=== PATIENT | male | born 1945 | race Caucasian/White ===

== ENCOUNTER → 2018-07-04 09:39 | Outpatient (CLI) | payer MEDICARE, OTHER, SELFPAY ==
[2018-07-04 10:44] LABS: Alanine Aminotransferase 33 IU/L (21-72); Albumin 4.2 g/dL (3.5-5.0); Albumin Globulin Ratio 1.7 (1.0-2.8); Alkaline Phosphatase 58 U/L (38-126); Aspartate Aminotransferase 29 IU/L (17-59); Bilirubin Total 0.6 mg/dL (0.2-1.3); Blood Urea Nitrogen 21 mg/dL (9-20); Calcium 9.2 mg/dL (8.4-10.2); Carbon Dioxide 29 mmol/L (22-32); Chloride 108 mmol/L (98-107); Cholesterol 136 mg/dL (140-199); Estimated Glomerular Filt Rate > 60.0 mL/min (>60); Globulin 2.5 g/dL (1.7-4.1); Glucose 96 mg/dL (80-110); HDL Cholesterol 50 mg/dL (40-60); HEMOLYSIS < 15 (0-50); LDL Cholesterol Calculated 73 mg/dL (<100); Potassium 5.2 mmol/L (3.4-5.1); Sodium 145 mmol/L (137-145); Total Protein 6.7 g/dL (6.3-8.2); Triglycerides 66 mg/dL (35-150)
[2018-07-04 11:42] LABS: Hep C Virus Ab w/Reflex Quant NEGATIVE s/c (NEGATIVE)
== END ==
PROVIDERS: Family Provider Internal Medicine; PCP Internal Medicine; Visit Provider Internal Medicine
DX: E78.2 Mixed hyperlipidemia (principal); K21.9 Gastro-esophageal reflux disease without esophagitis
CPT/HCPCS: 36415; 80053; 80061; 86803

== ENCOUNTER → 2018-10-03 19:05 | Outpatient (CLI) | payer MEDICARE, OTHER, SELFPAY ==
--- NOTE | 2018-10-03 19:07 | DI.MRI.S_ITS ---
PROCEDURE: MR CERVICAL SPINE WO CON INDICATIONS: C6 RADICULOPATHY TECHNIQUE: Noncontrast sagittal T1 spin echo and T2 fast spin echo, sagittal STIR, foraminal oblique sagittal T2 fast spin echo, and axial gradient echo or T2 fast spin echo through the cervical spine. COMPARISON: None. FINDINGS: Image quality: Excellent. Alignment and Curvature: There is loss of normal cervical lordosis. There is grade 1 retrolisthesis at C4-C5, C5-C6 and C6-C7. Bone Marrow: Marrow demonstrates normal overall signal. Spinal Cord: Visualized spinal cord has normal caliber. There is hyperintense signal in the dorsal cord at the level of C4-C5. No cerebellar tonsillar herniation. Paraspinous Soft Tissues: No paravertebral masses. Prevertebral soft tissues are normal in thickness. C2-C3: Preserved disc height. Mild disc desiccation. There is mild posterior disc bulge and posterior central annular fissure. The central canal is patent. No foraminal stenosis. C3-C4: Gdoq-ow-jwrxjzbz loss of disc height and disc desiccation. There is diffuse posterior disc bulge and small posterior central annular fissure. Uncovertebral hypertrophy. The central canal is moderately narrowed. Moderate bilateral foraminal stenosis. C4-C5: Moderate loss of disc height and disc desiccation. There is diffuse posterior disc bulge and disc osteophyte complex. Uncovertebral hypertrophy. Mild bilateral facet arthropathy. The central canal is ncyvwfmc-uc-wlicagpb narrowed. Severe bilateral foraminal stenosis. C5-C6: Moderate loss of disc height and disc desiccation. There is diffuse posterior disc bulge and disc osteophyte complex. Uncovertebral hypertrophy. Moderate bilateral facet arthropathy. The central canal is severely narrowed. Severe bilateral foraminal stenosis. C6-C7: Vuxyahfl-fg-vmaccl loss of disc height and disc desiccation. There is diffuse posterior disc bulge and disc osteophyte complex. Uncovertebral hypertrophy. Mild bilateral facet arthropathy. The central canal is severely narrowed. Severe bilateral foraminal stenosis. C7-T1: Mild loss of disc height and moderate disc desiccation. There is diffuse posterior disc bulge and disc osteophyte complex. Mild bilateral facet arthropathy. The central canal is moderately narrowed. Severe left and moderate right foraminal stenosis. IMPRESSION: 1. Multilevel degenerative disc disease and facet arthropathy as described. 2. Multilevel central canal stenoses, severe at C5-C6 and C6-C7, jlvsjoxr-ns-hwgcoy at C4-C5, and moderate central canal stenosis at C3-C4 and C7-T1. 3. Multilevel foraminal stenoses as described, severe at C4-C5 bilaterally, C5-C6 bilaterally, C6 and C7 bilaterally and C7-T1 on the left. 4. There is hyperintense signal in the dorsal aspect of the spinal cord at the level of C4-C5, suspicious for myelopathy. Dictated by: Latrell Wolfe M.D. on 10/06/2018 at 14:06 Approved by: Latrell Wolfe M.D. on 10/06/2018 at 14:20
== END ==
PROVIDERS: Family Provider Internal Medicine; PCP Internal Medicine; Visit Provider Orthopaedic Surgery
DX: M50.11 Cervical disc disorder with radiculopathy, high cervical region (principal); M47.22 Other spondylosis with radiculopathy, cervical region; M48.02 Spinal stenosis, cervical region
CPT/HCPCS: 72141

== ENCOUNTER → 2019-01-23 10:40 | Outpatient (CLI) | payer MEDICARE, OTHER, SELFPAY ==
[2019-01-23 12:30] LABS: Alanine Aminotransferase 30 IU/L (21-72); Albumin 4.3 g/dL (3.5-5.0); Albumin Globulin Ratio 1.8 (1.0-2.8); Alkaline Phosphatase 58 U/L (38-126); Aspartate Aminotransferase 27 IU/L (17-59); Bilirubin Total 0.6 mg/dL (0.2-1.3); Blood Urea Nitrogen 20 mg/dL (9-20); Calcium 9.3 mg/dL (8.4-10.2); Carbon Dioxide 26 mmol/L (22-32); Chloride 105 mmol/L (98-107); Cholesterol 131 mg/dL (140-199); Estimated Glomerular Filt Rate > 60.0 mL/min (>60); Globulin 2.4 g/dL (1.7-4.1); Glucose 95 mg/dL (80-110); HDL Cholesterol 45 mg/dL (40-60); HEMOLYSIS < 15 (0-50); LDL Cholesterol Calculated 71 mg/dL (<100); Potassium 4.9 mmol/L (3.4-5.1); Sodium 140 mmol/L (137-145); Total Protein 6.7 g/dL (6.3-8.2); Triglycerides 77 mg/dL (35-150)
[2019-01-23 12:56] LABS: Prostate Specific Antigen 2.46 ng/mL (0.10-4.00)
== END ==
PROVIDERS: PCP Internal Medicine; Visit Provider Internal Medicine
DX: E78.2 Mixed hyperlipidemia (principal); R03.0 Elevated blood-pressure reading, without diagnosis of hypertension; Z12.5 Encounter for screening for malignant neoplasm of prostate
CPT/HCPCS: 36415; 80053; 80061; 84153

== ENCOUNTER → 2020-03-01 12:13 | Outpatient (CLI) | payer MEDICARE, OTHER, SELFPAY ==
--- NOTE | 2020-03-01 | DI.RAD.S_ITS ---
PROCEDURE: XR CHEST 2V INDICATIONS: MALIGNANT NEOPLASM TECHNIQUE: 2 views of the chest were acquired. COMPARISON: [facility], RG, XR CXR 1 VIEW, 07/23/2005, 7:07. [facility], CR, CHEST 1 VIEW, 10/19/2007, 6:34. FINDINGS: Surgical changes and devices: None. Lungs and pleura: Lungs are clear. No pleural effusions or pneumothorax. Mediastinum: Mediastinal contours are normal. Heart size is normal. Bones and chest wall: No suspicious bony abnormalities. Soft tissues appear unremarkable. Scoliosis. IMPRESSION: No acute cardiopulmonary disease. Dictated by: Latrell Wolfe M.D. on 03/01/2020 at 13:43 Approved by: Latrell Wolfe M.D. on 03/01/2020 at 13:44
== END ==
PROVIDERS: PCP Internal Medicine; Referring Provider Nurse Practitioner; Visit Provider Nurse Practitioner
DX: C49.9 Malignant neoplasm of connective and soft tissue, unspecified (principal)
CPT/HCPCS: 71046

== ENCOUNTER → 2020-07-07 09:11 | Outpatient (CLI) | payer MEDICARE, OTHER, SELFPAY ==
--- NOTE | 2020-07-07 | DI.MRI.S_ITS ---
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 TECHNIQUE: Noncontrast coronal T1 spin echo and STIR, sagittal T1 spin echo with fat saturation and STIR, axial T1 spin echo and T2 fast spin echo with fat saturation. After the administration of contrast, axial/sagittal/coronal T1 spin echo with fat saturation centered through the left chest wall. COMPARISON: [facility], CT, CT CHEST WO CON, 07/07/2020, 9:16. FINDINGS: Image quality: Diagnostic. Bones: The visualized bone marrow demonstrates normal overall signal. No bone contusions or fractures. No suspicious intraosseous enhancement. Soft tissues: There are postsurgical changes in the posterior left chest wall including a cutaneous defect overlying the trapezius medially. There is a small subjacent loculated fluid collection deep to these surgical scar, measuring approximately 4.1 x 0.9 by 3.8 cm likely representing a postsurgical seroma. No associated internal enhancement identified following contrast administration. Laterally in the posterior chest wall there is a cutaneous marker in the area of clinical concern. No associated discrete subjacent mass or suspicious enhancement demonstrated in this region. Elsewhere within the posterior left chest wall there are small foci of magnetic susceptibility artifact along surgical stock scars consistent with postsurgical changes. The scanned muscles demonstrate normal overall bulk and internal signal. No pleural effusions within the visualized lungs. Bilateral renal cysts are seen within the partially visualized kidneys. IMPRESSION: 1. Postsurgical changes demonstrated in the left posterior chest wall including a probable seroma. 2. No definite evidence of recurrent disease. Dictated by: Gregorio Portillo M.D. on 07/07/2020 at 13:24 Approved by: Gregorio Portillo M.D. on 07/07/2020 at 13:35
--- NOTE | 2020-07-07 | DI.CT.S_ITS ---
PROCEDURE: CT CHEST WO CON INDICATIONS: Malignant neoplasm of connective and soft tissue, unspecifie TECHNIQUE: Noncontrast 5 mm thick sections acquired from the pulmonary apices to the posterior costophrenic angles. 1 mm lung window, 5 mm thick coronal and sagittal and 7 mm axial MIP reformats were then acquired. For radiation dose reduction, the following was used: automated exposure control, adjustment of mA and/or kV according to patient size. COMPARISON: [facility], CR, XR CHEST 2V, 03/01/2020, 12:15. FINDINGS: Image quality: Excellent. Right middle lobe and lingular scarring/atelectasis. No acute consolidation. No pleural effusions or pneumothorax. 3 mm nodule seen in the left upper lobe. Mediastinum: Heart size is normal. No pericardial effusion. No mediastinal adenopathy by size criteria. Thoracic aorta and central pulmonary arteries are normal in size. Esophagus is normal in caliber. No hiatal hernia. Bones and chest wall: No suspicious bony lesions. No vertebral body compression fractures. No axillary or supraclavicular adenopathy by size criteria. Thyroid gland negative . Partially visualized presumed simple appearing renal cysts bilaterally. These are technically indeterminate findings. IMPRESSION: 3 mm nodule involving the left upper lobe, technically indeterminate. Recommend continued surveillance to exclude early metastatic/malignant possibilities. Right middle lobe and lingular scarring/atelectasis. No acute consolidation Dictated by: Malcolm Ladd M.D. on 07/07/2020 at 10:31 Approved by: Malcolm Ladd M.D. on 07/07/2020 at 10:43
== END ==
PROVIDERS: PCP Internal Medicine; Referring Provider Nurse Practitioner; Visit Provider Nurse Practitioner
DX: Z08 Encounter for follow-up examination after completed treatment for malignant neoplasm (principal); Z85.831 Personal history of malignant neoplasm of soft tissue; R91.1 Solitary pulmonary nodule
CPT/HCPCS: 71250; 71552; A9579

== ENCOUNTER → 2020-07-27 15:57 | Outpatient (CLI) | payer MEDICARE, OTHER, SELFPAY ==
--- NOTE | 2020-07-27 16:00 | DI.MRI.S_ITS ---
PROCEDURE: MR CERVICAL SPINE WO CON INDICATIONS: Cervicalgia TECHNIQUE: Noncontrast sagittal T1 spin echo and T2 fast spin echo, sagittal STIR, foraminal oblique sagittal T2 fast spin echo, and axial gradient echo or T2 fast spin echo through the cervical spine. COMPARISON: [facility], MR, MR CERVICAL SPINE WO CON, 10/03/2018, 19:27. FINDINGS: Image quality: Excellent. Alignment and Curvature: Straightening of the normal lordotic curvature. Trace anterolisthesis of C2 on C3. Grade 1 retrolisthesis of C4 on C5 and C5 on C6 Bone Marrow: No fracture. Multilevel degenerative endplate sclerosis and spurring. Diffuse facet arthropathy. Spinal Cord: Visualized spinal cord has normal size and signal. No cerebellar tonsillar herniation. Paraspinous Soft Tissues: No paravertebral masses. Prevertebral soft tissues are normal in thickness. C2-C3: No canal stenosis. No right foraminal narrowing. Moderate left foraminal stenosis which is grossly unchanged C3-C4: Minimal canal narrowing. Moderate bilateral foraminal stenosis with nerve root compression. No interval change C4-C5: Mild canal narrowing which is unchanged. Moderate right foraminal stenosis with nerve root compression, no interval change. Severe left foraminal stenosis with nerve root compression, grossly unchanged C5-C6: Mild canal narrowing. Moderate right foraminal stenosis and severe left foraminal narrowing, with nerve root compression on both sides C6-C7: Mild canal narrowing. Ccuw-bt-nnujdbgl left and moderate right foraminal stenosis, with nerve root compression on both sides although unchanged appearance C7-T1: Minimal canal narrowing. No foraminal stenosis on the right. Moderate left foraminal narrowing, grossly unchanged IMPRESSION: Overall, grossly unchanged examination as detailed above by spinal level. Dictated by: Malcolm Ladd M.D. on 07/27/2020 at 16:59 Approved by: Malcolm Ladd M.D. on 07/27/2020 at 17:17
== END ==
PROVIDERS: PCP Internal Medicine; Referring Provider Orthopaedic Surgery; Visit Provider Orthopaedic Surgery
DX: M54.2 Cervicalgia (principal); M48.02 Spinal stenosis, cervical region
CPT/HCPCS: 72141

== ENCOUNTER → 2020-09-15 10:56 | Outpatient (CLI) | payer MEDICARE, OTHER, SELFPAY ==
[2020-09-15 12:50] LABS: Add Manual Diff / Slide Review NO; Basophils Absolute Auto 0 /uL (0-100); Basophils Percent Auto 0.6 % (0-2); Eosinophils Absolute Auto 100 /uL (0-450); Eosinophils Percent Auto 1.9 % (2-4); Hematocrit 41.1 % (41-53); Hemoglobin 13.6 g/dL (13.5-17.5); Lymphocytes Absolute Auto 1500 /uL (1100-4500); Lymphocytes Percent Auto 26.7 % (25-40); Mean Corpuscular HGB Conc 33.1 % (30-36); Mean Corpuscular Hemoglobin 31.3 PG (26-34); Mean Corpuscular Volume 94.4 fL (80-100); Monocytes Absolute Auto 600 /uL (0-900); Monocytes Percent Auto 9.7 % (3-14); Neutrophils Absolute Auto 3500 /uL (1500-7000); Neutrophils Percent Auto 61.1 % (50-75); Platelet Count 191 X10^3/uL (150-400); Red Blood Cell Count 4.35 X10^6/uL (4.5-5.9); White Blood Cell Count 5.7 X10^3/uL (4.5-11.0)
[2020-09-15 13:04] LABS: Blood Urea Nitrogen 23 mg/dL (9-20)
== END ==
PROVIDERS: PCP Internal Medicine; Referring Provider Orthopaedic Surgery; Visit Provider Orthopaedic Surgery
DX: Z01.818 Encounter for other preprocedural examination (principal); Z01.812 Encounter for preprocedural laboratory examination; R79.89 Other specified abnormal findings of blood chemistry
CPT/HCPCS: 36415; 84520; 85025; 93005

== ENCOUNTER → 2020-09-28 09:30 | Outpatient (CLI) | payer MEDICARE, OTHER, SELFPAY ==
[2020-09-28 10:56] LABS: COVID19 -Nasal RAPID Negative (Negative)
== END ==
PROVIDERS: PCP Internal Medicine; Visit Provider Physician Assistant
DX: Z11.59 Encounter for screening for other viral diseases (principal)
CPT/HCPCS: 87635

== ENCOUNTER 2020-09-29 09:20 | Day surgery (SDC) | payer MEDICARE, OTHER, SELFPAY ==
[2020-09-16 07:28] VITALS: BMI 22.4
[2020-09-29] VITALS (18 sets, daily range): BP systolic 129–161; BP diastolic 61–88; PULSE 61–76; RESP 8–17; TEMP 35.8–37.1; O2SAT 92–100; BMI 22.6
--- NOTE | 2020-09-29 | DI.RAD.S_ITS ---
PROCEDURE: XR CERVICAL SPINE 2V OR 3V INDICATIONS: C4-C7 DISCECTOMY TECHNIQUE: To view(s) of the cervical spine were acquired. COMPARISON: None. FINDINGS: Bones: Normal alignment established after anterior approach interbody staple cervical fusion devices at C4-C5, C5-C6, and C6-C7. There also are interbody disc prosthesis devices at each of these 3 levels. Soft tissues: No prevertebral soft tissue swelling. IMPRESSION: C4 through C7 anterior discectomy and interbody disc prosthesis placement with interbody fusion devices at the C4-C5, C5-C6, and C6-C7 levels. Dictated by: Anatoliy Bradford M.D. on 09/29/2020 at 12:17 Approved by: Anatoliy Bradford M.D. on 09/29/2020 at 12:21
[2020-09-29] MEDS: LACTATED RINGERS 1,000 ML 42 ML IV (09:54)
--- NOTE | 2020-09-29 10:10 | PM.PREOP ---
Pre-operative Note COVID-19 COVID-19 status: Negative Result date/Date tested (Pos, Neg/Pending): 09/28/20 Interval Note History & Physical reviewed/Exam performed by Physician: Yes Changes to H&P: No
[2020-09-29] MEDS: CEFAZOLIN 2 GM/100 ML FROZ.PIGGY IV ×2 (10:32→17:42)
--- NOTE | 2020-09-29 11:03 | SUR.OPER ---
Supine, head on gel donut. Arms padded with gel pads, tucked at sides, towel roll under shoulders. Safety belt at thigh. Legs uncrossed.
[2020-09-29] MEDS: THROMBIN (RECOMBINANT) 5,000 UNIT VIAL 5000 UNIT TOP (11:14)
[2020-09-29] MEDS: SODIUM CHLORIDE 0.9% 1,000 ML, GENTAMICIN 80 MG IRR (11:15)
[2020-09-29] MEDS: BUPIVACAINE 0.25% (PF) VIAL 30 ML INJ (11:18)
--- NOTE | 2020-09-29 12:04 | P.OP_ITS ---
Operative Date/Time/Diagnoses Date of procedure: 09/29/20 Time of procedure: 12:04 Pre-op diagnosis: Cervical stenosis with myelopathy Post-op diagnosis: same Procedure & Clinicians Procedure: C4-5, C5-6, C6-7 ACDF with cages Iliac crest bone graft aspirate Use of microscope Same procedure as scheduled: Yes Indications: [age] year old male with myelopathy from cervical stenosis. They had failed conservative management and requested operative intervention. Risks and benefits of surgery were discussed and appropriate consents were obtained. Surgeon: Memo Welch Supply Chain Engineer: Elizabeth Carlos Anesthesia Type: General Operative Notes Findings: None Closure Type: primary Specimen(s): none sent Prosthetic devices, grafts, tissues, transplants, or devices: Star ANETTE-C Estimated Blood Loss (mL): 10 Procedure in detail: Patient was brought to the operating room and intubated on the table. A time-out was performed. Preoperative antibiotics were given. The neck was prepped and draped in the standard sterile fashion. Using a skin fold, we made a 3 cm oblique incision on the left side. We used Bovie to go through the platysma and then did a standard anterolateral blunt dissection down to the precervical fascia. Fascia was nicked and elevated up. A marker was placed and x-ray was taken for localization. We then subperiosteally elevated up the longus colli muscles. Self-retaining retractors were placed. [place] Marys pins were placed. We then brought in the microscope. A scalpel used to perform an annulotomy. We then used a combination of pituitaries and curettes and Kerrison to perform a complete anterior diskectomy at C6-7. We used the bur to take down the posterior osteophytes. We took down the PLL and used Kerrison to remove any posterior disc material and osteophytes. At the end we could from the nerve hook cephalad caudally and out the foramen and everything was opened. A small stab incision was made over the left anterior iliac crest. A Jamshidi needle was advanced into the pelvis and 2 mL of bone marrow was aspirated. We then used the trials. We then packed a 15 x 17 x 6 mm ANETTE-C cage with Primagen bone graft and the iliac crest harvest. The cage was placed under fluoroscopic guidance. We then placed our two locking plates completing the ACDF at C6-7. We then moved up to the C5-6 level. We again performed a complete diskectomy. We used the bur to decorticate the endplates and take down the posterior osteophytes. We took down the PLL and removed the remaining disc and osteophytes. We swept everything with the nerve hook and it was open. We then trialed and placed another 15 x 17 x 6 mm cage with bone graft for the ACDF at C5-6. The locking plates were placed. We then moved up to the C4-5 level. We again performed a complete diskectomy. We used the bur to decorticate the endplates and remove the posterior osteophytes. We took down the PLL and removed the remaining disc and osteophyte material. We checked that everything was open with a nerve hook. We then tr ialed and placed another 15 x 17 x 6 mm cage with bone graft for the ACDF at C4- 5. The locking plates were placed. The self-retaining retractors and Saint Marys pins were removed and final x-rays taken. The wound was irrigated. There was no bleeding. The carotid was beating nicely. The platysma was closed. The superficial was closed. The skin was closed. A sterile dressing was placed. They were then extubated and brought to recovery room with no complications. Complications: none Post-operative Condition: stable Disposition: PACU Plan for aftercare: Inpatient. Soft collar for comfort.
[2020-09-29] MEDS: fentaNYL 100 MCG/2 ML INJ IV ×2 (12:35→12:40)
[2020-09-29] MEDS: OXYCODONE/ACETAMINOPHEN 5/325 TABLET 1 TAB PO ×3 (12:42→16:29)
--- NOTE | 2020-09-29 12:55 | SUR.PHASEI ---
Report called to ALPHONSO Bustamante on floor. Plan to take pt up in 15-20 minutes.
--- NOTE | 2020-09-29 13:09 | SUR.PHASEI ---
Pt transferred to floor in stable condition by ALPHONSO De Paz
--- NOTE | 2020-09-29 14:23 | PC.NURSE ---
Assess- Patient to floor around 1315, he has an anterior cervical dressing that is cdi, with soft collar in place. Given 2 percocet down in pacu and is comfortable. IVF infusing, patients skin check done and under physical assessment. Patient also has an illiac crest dressing to his l.hip that is cdi, from harvest site. He has good cms and ppx2. Resting comfortably.
[2020-09-29] MEDS: CELECOXIB 200 MG CAPSULE 400 MG PO (14:38)
[2020-09-29] MEDS: LACTATED RINGERS 1,000 ML 125 ML IV ×2 (14:39→22:52)
[2020-09-29] MEDS: CELECOXIB 200 MG CAPSULE PO (21:31)
[2020-09-29] MEDS: SENNOSIDES 8.6 MG TABLET 17.2 MG PO (21:31)
[2020-09-29] MEDS: BENZOCAINE/MENTHOL 1 LOZ PKT 1 EACH PO (21:31)
[2020-09-29] MEDS: DOCUSATE 100 MG CAPSULE PO (21:31)
[2020-09-29] MEDS: GABAPENTIN 300 MG CAPSULE PO (21:31)
[2020-09-29] MEDS: hydrOXYzine pamoate 25 MG CAPSULE PO (23:29)
--- NOTE | 2020-09-30 01:40 | PC.NURSE ---
2305 Received safe hand-off report. The patient is currently sitting up in bed. He is alert and oriented x4. Denies significant pain. He has LR infusing at 125mL/h in the right forearm, and is on room air. He has a soft neck collar on, dressing underneath is CDI. The bed alarm is on. The patient has been using the urinal at the bedside. When asked if he has been having any difficulty urinating post operatively, he stated he has difficulty starting a stream of urine but also notes this is normal for him prior to surgery. It happens the most when I sit too much.
[2020-09-30] MEDS: CEFAZOLIN 2 GM/100 ML FROZ.PIGGY IV (02:03)
[2020-09-30] MEDS: MAG HYDROX/ALUM/SIMETH 30 ML UDC PO (02:11)
[2020-09-30 05:55] VITALS: BP 136/77; PULSE 83; RESP 16; TEMP 35.9; O2SAT 96
[2020-09-30] MEDS: BENZOCAINE/MENTHOL 1 LOZ PKT 1 EACH PO (06:35)
--- NOTE | 2020-09-30 08:25 | OT.IP.EVAL ---
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 bone graft(Not Applicable) - Memo Welch MD Past Medical History (Last Updated 09/29/20 @ 09:45 by Kiki Salcedo RN) BCC (basal cell carcinoma of skin) (2013) Chicken pox (1952) Colon polyps (2008) Cyst of left kidney (07/10/17) Cyst of right kidney (07/10/17) Diverticulosis of intestine (07/10/17) Eczema Elevated blood pressure reading without diagnosis of hypertension Enlarged prostate Gastroesophageal reflux disease without esophagitis Measles Mixed hyperlipidemia Osteoarthritis (1979) Retinal detachment (2013) Sarcoma Skin cancer (2014) Sleep apnea in adult Tinnitus (1997) Surgical History (Last Updated 09/16/20 @ 08:10 by Jhoana Moore RN) Anesthesia History of colonoscopy with polypectomy (02/27/17) History of surgery (09/2017) History of vasectomy Status post knee surgery Occupational Therapy Inpatient Evaluation/Re-Eval M1 PT/OT-IP Prior Functional Status Start: 09/30/20 08:45 Freq: NEEDED Status: Active Protocol: Document 09/30/20 08:45 CGR (Rec: 09/30/20 09:05 CGR [email or web address]) Medical Review Prior Functional Status Medical History Reviewed Yes Communication Pt is an effective communicator. Mobility and Gait Pt was IND. Activities of Daily Living and IADL's Pt was IND. Social History Household Members spouse Living Arrangements House Number of Floors (Floors) Two Floors Number of Stairs To Enter/Railing? Pt has 3 steps to enter with railing on R assending into the garage but no railing at the front enterance. Pt has a flight of stairs to his second floor but is able to stay on the first level for short term if needed. Home Environment High Toilet,Walk in Shower Home Equipment Grab Bars In Shower Employment Status Retired M2 OT-IP Current Condition Start: 09/30/20 08:45 Freq: Status: Active Protocol: Document 09/30/20 08:45 CGR (Rec: 09/30/20 09:05 CGR [email or web address]) Occupational Therapy Current Condition Current Condition Evaluation Date 09/30/20 Treatment Diagnosis C4-7 ACDF Diagnosis Onset Date 09/29/20 Post Operative Precautions Cervical Spine Precautions Soft Collar for Comfort,No Heavy Lifting,Log Roll M3 OT- IP Subjective and Pain Start: 09/30/20 08:45 Freq: Status: Active Protocol: Document 09/30/20 08:45 CGR (Rec: 09/30/20 09:05 CGR [email or web address]) OT- Subjective Occupational Therapy Visit Type Type Initial Evaluation Visit Start Time 08:11 Visit Stop Time 08:25 Total Visit Minutes 14 OT Pain Assessment Pain When Pain Assessed At Rest Pain Present Pain Present Pain Reported Location neck Intensity 2 Scale Used Numeric (0 - 10) Management Techniques Distraction M4 OT- IP ADL's Start: 09/30/20 08:45 Freq: Status: Active Protocol: Document 09/30/20 08:45 CGR (Rec: 09/30/20 09:05 CGR [email or web address]) OT PFV-Tjji-Goijhqd General Evaluation Self-Feeding Ability Independent Comments OT Self-Feeding Comments Breakfast OT ADL-Grooming General Evaluation Grooming Ability Independent OT ADL-Oral Care Comments Oral Care Comments Not performed OT ADL-Dressing General Eval Lower Body Dressing Ability Independent Areas Needing Assistance Socks Comments OT Dressing Comments seated EOB OT ADL-Toileting General Evaluation Toileting Ability Independent Comments OT Toileting Comments seated on toilet OT ADL-Bathing Comments OT Bathing Comments Not performed M5 OT- IP IADL's Start: 09/30/20 08:45 Freq: Status: Active Protocol: Document 09/30/20 08:45 CGR (Rec: 09/30/20 09:05 CGR [email or web address]) OT-Instrumental Activities of Daily Living Deficits IADL Deficits Identified No Deficits Home Safety Awareness Awareness of Need for Assistance at Home Good Awareness Ability to Problem Solve Emergency Able to Problem Solve Situations Medication Management Medication Management No Deficits Identified Money Management Money Management No Deficits Identified Meal Preparation Meal Preparation No Deficits Identified Personal Care Service Provider Personal Care Service Provider No Deficits Identified Driving Driving Comments Pt is an active transporter driver M6 OT- IP Functional Cognition Start: 09/30/20 08:45 Freq: Status: Active Protocol: Document 09/30/20 08:45 CGR (Rec: 09/30/20 09:05 CGR [email or web address]) Cognitive Factors Limiting Selfcare Function Cognitive Ability Level of Alertness Alert Patient Orientation Name,Age,Birthday,Month,Date, Year,Day of Week,Place, Situation Attention Span Ability Capable of Focused Attention, Capable of Sustained Attention Ability to Follow Commands Able to Follow Multi-Step Commands Memory Description No Deficits Noted Safety Awareness No Deficits Noted Problem Solving Ability No deficits Noted OT- Vision and Hearing OT- Hearing Assessment OT- Hearing Assessment WFL OT- Vision Assessment Visual Acuity Glasses All The Time,Contact Lenses Vision Assessment Comments Pt has bifocals but states that he typically wears contact lenses. M7 OT- IP Mobility and Balance Start: 09/30/20 08:45 Freq: Status: Active Protocol: Document 09/30/20 08:45 CGR (Rec: 09/30/20 09:05 CGR [email or web address]) OT- Bed Mobility Assessment Rolling Type of Rolling Log Rolling Level of Assistance Independent Supine to Sit Supine to Sit Assist Independent Scooting Scooting to Edge of Bed Independent OT-Transfer Assessment Sit to and From Stand Sit to and from Stand Independent Transfers Transfer Ability Independent Technique Transfer Destination Bed,Chair,Toilet Transfer Technique Stand Step Pivot Devices Transfer Assistive Devices None Comments Mobility Comments Pt mobilized around the room without difficulty OT- Gait Assessment Gait Gait Assistance Required: Independent Assistive Devices Assistive Device None OT- Balance Assessment Sitting Balance and Reactions Static Sitting Balance Ability Normal Dynamic Sitting Balance Ability Normal Standing Balance and Reactions Static Standing Balance Ability Normal Dynamic Standing Balance Ability Normal M8 OT- IP Objective Assessments Start: 09/30/20 08:45 Freq: Status: Active Protocol: Document 09/30/20 08:45 CGR (Rec: 09/30/20 09:05 CGR [email or web address]) OT Gross Range of Motion Upper Extremity Range of Motion Assessment Within Functional Limits OT Strength Upper Extremity Strength Assessment Within Functional Limits OT- Coordination Assessment Upper Extremity Finger to Nose Test Within Functional Limits Finger Tapping Test Within Functional Limits OT-Muscle Tone Assessment Muscle Tone WNL Yes OT Sensation Assessment Edema Edema Absent M9 OT- IP Assessment and Plan Start: 09/30/20 08:45 Freq: Status: Active Protocol: Document 09/30/20 08:45 CGR (Rec: 09/30/20 09:05 CGR [email or web address]) OT Summary Assessment and Plan Potential Rehabilitation Potential Excellent Analytic Complexity at Evaluation Low Summary OT Impairments Pain Progress Towards Goals Safe For Discharge,Goals Met Assessment Summary Pt presents as a low complexity evalution s/p cervical sx. Pt is performing at or close to his baseline of IND. No further OT needs. Frequency of Treatment Frequency Of Treatment Discharge Discharge Recommendations OT Discharge Recommendations Home with Assistance Home Equipment Needs None Transportation Needs at Discharge Private Vehicle
[2020-09-30] MEDS: FISH OIL 1,000 MG CAPSULE 2000 MG PO (08:41)
[2020-09-30] MEDS: DOCUSATE 100 MG CAPSULE PO (08:41)
[2020-09-30] MEDS: CELECOXIB 200 MG CAPSULE PO (08:41)
[2020-09-30] MEDS: CHOLECALCIFEROL (VITAMIN D3) 1,000 UNIT TABLET 4000 UNIT PO (08:42)
[2020-09-30] MEDS: PANTOPRAZOLE 20 MG TABLET PO (08:42)
[2020-09-30] MEDS: ASCORBIC ACID 500 MG TABLET 1000 MG PO (08:42)
[2020-09-30 08:55] VITALS: BP 160/92; PULSE 64; RESP 16; TEMP 36.7; O2SAT 99
--- NOTE | 2020-09-30 09:42 | PM.PNPO.1 ---
Subjective Subjective Date Patient Seen: 09/30/20 Time Patient Seen: 09:42 Interval history: He is doing very well. A little scratchy throat was swallowing well. Arms feel fine. He is having some urinary difficulty which he has had before with surgeries. Exam Vital Signs (past 8 hours): - 09/30/20 05:55 09/30/20 08:55 Temperature 96.6 F L 98.1 F Pulse Rate 83 64 Respiratory Rate 16 16 Blood Pressure 136/77 160/92 H Pulse Oximetry 96 99 Oxygen Delivery Method Room Air Oxygen Flow Rate 0 Const Orientation: alert and oriented x3 Back/Spine/Pelvis Other: CDI. 5/5 motor both upper extremities [facility] Medical History (Updated 09/29/20 @ 09:45 by Kiki Salcedo RN) BCC (basal cell carcinoma of skin) (2013) Chicken pox (1952) Colon polyps (2008) Cyst of left kidney (07/10/17) Cyst of right kidney (07/10/17) Diverticulosis of intestine (07/10/17) Eczema Elevated blood pressure reading without diagnosis of hypertension Enlarged prostate Gastroesophageal reflux disease without esophagitis Measles Mixed hyperlipidemia Osteoarthritis (1979) Retinal detachment (2013) Sarcoma Skin cancer (2014) Sleep apnea in adult Tinnitus (1997) Surgical History (Updated 09/16/20 @ 08:10 by Jhoana Moore RN) Anesthesia History of colonoscopy with polypectomy (02/27/17) History of surgery (09/2017) History of vasectomy Status post knee surgery Family History Mother Age: 106 Colon cancer Lives in long-term care facility Grandmother Family history of colon cancer Heart disease Congestive heart failure Sister Age: 77 High cholesterol Sister Age: 74 High cholesterol Brother No problems noted. Father Pancreatic cancer Social History household members: spouse Smoking Status: Former smoker alcohol intake: current Assessment & Plan Post-op Postoperative Procedures: Procedures Operation Date: 09/29/20 10:45 Actual Procedures Side Surgeon p C4-7 anterior cervical discectomy & fusion w. bone graft Not Applicable Memo Welch MD He is doing well. I will give some Flomax for urinary retention. Plan to discharge home. Quality VTE Deep Vein Thrombosis/Pulmonary Embolism Present on Admission: No
--- NOTE | 2020-09-30 09:44 | PT.IIE ---
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 bone graft(Not Applicable) - Memo Welch MD Surgical History (Last Updated 09/16/20 @ 08:10 by Jhoana Moore, RN) Anesthesia History of colonoscopy with polypectomy (02/27/17) History of surgery (09/2017) History of vasectomy Status post knee surgery Medical History (Last Updated 09/29/20 @ 09:45 by Kiki Salcedo, ALPHONSO) BCC (basal cell carcinoma of skin) (2013) Chicken pox (1952) Colon polyps (2008) Cyst of left kidney (07/10/17) Cyst of right kidney (07/10/17) Diverticulosis of intestine (07/10/17) Eczema Elevated blood pressure reading without diagnosis of hypertension Enlarged prostate Gastroesophageal reflux disease without esophagitis Measles Mixed hyperlipidemia Osteoarthritis (1979) Retinal detachment (2013) Sarcoma Skin cancer (2014) Sleep apnea in adult Tinnitus (1997) Physical Therapy Inpatient Evaluation/Re-Eval M1 PT/OT-IP Prior Functional Status Start: 09/30/20 08:45 Freq: NEEDED Status: Discharge Protocol: Document 09/30/20 08:45 CGR (Rec: 09/30/20 09:05 CGR [id number]) Medical Review Prior Functional Status Medical History Reviewed Yes Communication Pt is an effective communicator. Mobility and Gait Pt was IND. Activities of Daily Living and IADL's Pt was IND. Social History Household Members spouse Living Arrangements House Number of Floors (Floors) Two Floors Number of Stairs To Enter/Railing? Pt has 3 steps to enter with railing on R assending into the garage but no railing at the front enterance. Pt has a flight of stairs to his second floor but is able to stay on the first level for short term if needed. Home Environment High Toilet,Walk in Shower Home Equipment Grab Bars In Shower Employment Status Retired M1 PT/OT-IP Prior Functional Status Start: 09/30/20 13:11 Freq: NEEDED Status: Active Protocol: Document 09/30/20 09:44 AB (Rec: 09/30/20 13:20 AB [email or web address]) Medical Review Prior Functional Status Medical History Reviewed Yes Communication able to make needs known Mobility and Gait Pt stated that he is indpeendent with all mobilities and ambulation wtihout AD Activities of Daily Living and IADL's independent Social History Household Members spouse Living Arrangements House Number of Floors (Floors) Two Floors Number of Stairs To Enter/Railing? 3 steps to enter with R rail ascending 12 steps with bilateral rails to the bedroom Home Environment High Toilet,Walk in Shower Home Equipment Grab Bars In Shower Employment Status Retired M2 PT-IP Current Condition Start: 09/30/20 13:11 Freq: NEEDED Status: Active Protocol: Document 09/30/20 09:44 AB (Rec: 09/30/20 13:20 AB [email or web address]) Physical Therapy Current Condition Current Condition Evaluation Date 09/30/20 Treatment Diagnosis s/p C4-7 ACDF; difficulty in walking Onset Date 09/29/20 Precautions Cervical Spine Precautions Soft Collar for Comfort,No Heavy Lifting,Log Roll M3 PT-IP Subjective Start: 09/30/20 13:11 Freq: NEEDED Status: Active Protocol: Document 09/30/20 09:44 AB (Rec: 09/30/20 13:20 AB [email or web address]) Subjective Physical Therapy Visit Type Type Initial Evaluation Visit Start Time 09:44 Visit Stop Time 09:54 Total Visit Minutes 10 Number of PNEUMATIC SYSTEMS OPERATOR Visits 0 Therapy Pain Assessment Pain When Pain Assessed At Rest Pain Present Pain Present Pain Reported Location neck Intensity 2 Scale Used Numeric (0 - 10) Pain Management Techniques Distraction,Re-positioning, Timing of Activity with Medications M4 PT-IP Mobility and Gait Start: 09/30/20 13:11 Freq: NEEDED Status: Active Protocol: Document 09/30/20 09:44 AB (Rec: 09/30/20 13:20 AB [email or web address]) PT-Bed Mobility Assessment Rolling Type of Rolling Log Rolling Level of Assist Standby Assistance Supine to Sit Supine to Sit Standby Assistance Sit to Supine Sit to Supine Standby Assistance PT-Transfer Assessment Sit to and From Stand Sit to and from Stand Standby Assistance Equipment Transfer Assistive Device None Comments Mobility Comments reviewed cervical precautions with pt. completed log roll bed mobility supine<>sit SBA. ambulated towards the sink without AD. educated on soft collar management and pt was able to complete with assist. stated that spouse will be able to assist him. ambulated in the hallway without AD SBA . completed up/down steps using bilateral rails initially SBA and then just R rail SBA. ambulated back to his room without AD SBA. Pt is steady with ambulation without LOB and can ge independent in his room. Gait Assessment Gait Gait Assistance Required: Standby Assistance Distance (Feet) 250 Able to Maintain Weight Bearing Status Yes During Gait Assistive Devices Assistive Device None Orthotic/Prosthetic Devices or Brace: Yes Factors Limiting Gait Function Factors Limiting Gait Function Decreased Sensation,Limited Range of Motion,Pain Stair Climbing Assessment Evaluation Level of Assist On Stairs Standby Assistance Devices Stair Climbing Assistive Devices Left Railing,Right Railing Technique/Endurance Stair Climbing Direction Ascend and Descend Stair Climbing Technique Step Over Step Number of Steps Climbed 3 Query Text: Stair Climbing Set # Repetitions (reps) 3 Comments Stair Climbing Comments pls refer to mobility section for details PT-Balance Assessment Sitting Balance and Reactions Static Sitting Balance Ability Normal Dynamic Sitting Balance Ability Normal Standing Balance and Reactions Static Standing Balance Ability Good Dynamic Standing Balance Ability Good Device Used without AD M5 PT-IP Objective Assessments Start: 09/30/20 13:11 Freq: NEEDED Status: Active Protocol: Document 09/30/20 09:44 AB (Rec: 09/30/20 13:20 [facility] Orientation Orientation/Cognition Level of Alertness Alert Safety Awareness Decreased Safety Awareness Memory Description No Deficits Noted Gross Range of Motion Lower Extremity ROM Assessment Within Functional Limits Strength Lower Extremity Strength Assessment Within Functional Limits Sensation Assessment Sensation Gross Sensation Right UE Impaired,Left UE Impaired Sensation Description Numbness Comments Sensation Comments c/o numbness on B hands/ fingers Muscle Tone Muscle Tone WNL Yes M6 PT-IP Treatment Start: 09/30/20 13:11 Freq: NEEDED Status: Active Protocol: Document 09/30/20 09:44 AB (Rec: 09/30/20 13:20 AB [email or web address]) Physical Therapy Treatment Education Education Provided Precautions,Weight Bearing Status,Post-Op Packet,Safety M7 PT-IP Assessment and Plan Start: 09/30/20 13:11 Freq: NEEDED Status: Active Protocol: Document 09/30/20 09:44 AB (Rec: 09/30/20 13:20 AB [email or web address]) PT Summary Assessment and Plan Potential Rehabilitation Potential Good Status of Condition at Evaluation Stable Summary Impairments Pain,ROM,Strength,Balance, Coordination,Sensation,Bed Mobility,Transfers,Gait, Activity Tolerance Assessment Summary pt is doing well with mobility and plans to go home today and will have spouse to assist him if needed. pt may go home when medically stable. Goals Bed Mobility Goal Independent Transfer Goal Independent Gait Goal Independent Gait Distance 300 Other Goals up/down 3 steps R rail mod I up/down 12 steps B rails mod I Days to Meet Goals 3 Frequency of Treatment Frequency Of Treatment Twice a Day Treatment Plan Physical Therapy Treatment Plan Bed Mobility Training,Transfer Training,Gait Training, Therapeutic Exercise,Balance Retraining,Post Op Education, Discharge Planning,Hot or Cold Pack,Neuromuscular Re-ed, Coordination Retraining,Manual Therapy Recommendations To Nursing Amount of Assist Needed Standby Assistance Discharge Recommendations PT Discharge Recommendations Home Transportation Needs at Discharge Private Vehicle
--- NOTE | 2020-09-30 10:41 | CM.DANOTE ---
Addendum entered by Shira Driscoll LPN 09/30/20 10:52: Met with pt as planned after discussion with ALPHONSO Quinones. Introduced self and role. Pt is found up in chair, says he has see PT and COMB TENDER as well as OT and all have cleared him for home. He says he has no concerns re the urinary issue as this is a familiar post surgery problem for him and Flomax is helpful. He is waiting for his to arrive and says he is hopeful that he will be able to leave soon. ALPHONSO Quinones is updated. Home today, clinic followup Original Note: Discharge Planning/Care Management DCP: assessment: case received, EMR reviewed, d/c to home setting noted. Pt is a 74 year old male who admitted yesterday for a scheduled cervical spinal surgery. Surgeon: Dr. Welch. Payer: Medicare and [facility] PCP: Serg Rojas MD Therapy team have worked with pt and have cleared him for home today. Dr. Angeles noted concerns re urinary retention post surgery and has this morning added Flomax to POC. Will check in with pt now. Advanced directive, confirm from FAMILY Start: 09/29/20 14:46 Freq: Q24H Status: Active Protocol: Document 09/29/20 16:22 AKP (Rec: 09/29/20 16:25 AKP [id number]) Advance Directive, confirm on record Time 16:24 Person contacted Landon/pt Copy received No Advanced directive available on record No CM Discharge Assessment Start: 09/30/20 10:40 Freq: Status: Active Protocol: Document 09/30/20 10:40 ITV (Rec: 09/30/20 10:41 ITV [id number]) Discharge Planning Assessment Advance Directives? Yes Advance Directives on File No History Provided By Patient,Medical Record Prior Living Arrangements House Household Members spouse Review Status In Process Pre-Anesthesia Assessment Start: 09/16/20 07:28 Freq: Status: Active Protocol: Document 09/16/20 07:28 CAB (Rec: 09/16/20 08:25 CAB [id number]) Pre-Anesthesia Assessment Preferred Name Jose Alfredo Marc Patient Information Reviewed Via Phone Assessment Assessment Completed With Patient Diagnostic Results CBC,EKG,Other Comment Labs/EKG @ [facility], COVID screen @ [facility] 09/28/20 Primary Care Provider Serg Rojas Seen Specialist in Last 12 Months Yes Specialist Seen Oncologist,Orthopedist,Sleep specialist Primary Language Danish Automobile Accessories Installer Required No Height 185.42 cm Weight 77.111 kg Body Mass Index (BMI) 22.4 Hearing Ability Normal Visual Assist Contacts,Glasses Dentition Type Teeth, Natural Present,Teeth, Missing Other Aids Yes: Oral appliance for sleep apnea Hx Anesthesia Reactions No Hx Family Anesthesia Reaction No Hx Malignant Hyperthermia No Hx Blood Transfusions No Anesthesia Review Requested No alcohol intake current alcohol intake frequency a few times a week Smoking Status Former smoker how long ago did patient quit smoking Quit 1980 Substance Use Type does not use Pain Present Pain Reported Musculoskeletal Symptoms Limited Range of Motion,Neck Pain,Numbness History of Falling (Recent or History of No ) Patient is completely paralyzed or No completely immobile Mental Status Oriented to own ability Is patient on oxygen? No Does patient have ROCHE/SOB No Hx Sleep Apnea Yes Currently Taking a Beta Dasia No Can You Climb a Flight of Stairs Without Yes SOB Hx Chest Pain No Hx SOB No Hx Syncope or Dizziness No Anti-Coagulant Therapy No Has a Facilities Officer No Cardiac Testing No Hx Pacemaker/ICD No Pacemaker Rep Required? No Cardiac Clearance Received Not Applicable Diet Type At Home Regular,Low Carb dysphagia No Gastrointestinal Symptoms Reflux Genitourinary Symptoms Change in Urinary Stream Urinary Catheter Present No Hx Urinary Self Catheterization No Diabetes No Hx Drug Resistant Organism No Presence of External or Internal Medical No Devices Have you had any close contact with No someone diagnosed with COVID-19? Marital Status Lives With spouse Prior Living Arrangements House Number of Floors (Floors) Two Floors Support System Spouse Does the Patient Have Assistance After Yes Surgery Patient Discharge Plan Description Return Home Comment Pt advised 1 night length of stay per surgeon Feels Safe in Current Environment Yes Been Physically Hurt or Threatened By a No Person in Current Environment Do you have thoughts of harming yourself None or others? Are you currently considering suicide? No Do you have a plan to hurt yourself or No Plan others? Do You Have Any Spiritual Beliefs That No May Affect Your HC Choices? Do You Have Any Cultural Practices That No May Affect Your HC Choices? Who Can We Speak to About Patient's Care Family, friends Identifying Code for Release of Patient Declines to issue Information Health Care Proxy/Next of Kin Landon () Health Care Proxy or [phone] Emergency Contact Name Landon () Emergency Contact or [phone] Advance Directives? Yes Advance Directives on File No Requested Patient Bring Advanced Yes Directives DOS Power of Auto Appraiser No PAC Instructions Medications to take/avoid, Nasal antibiotic,No ETOH/ petroleum product on skin DOS, NPO,Post-op transportation,Pre -surgical wash,Sensory aids, Sturdy shoes/comfortable clothes,Do not bring valuables and remove jewelry
--- NOTE | 2020-09-30 10:55 | ST.IPSCREEN ---
Pt is status post ACDF surgery yesterday. Pt reported slightly sore throat with swallowing and normal voice. Explained that these are typical after ACDF surg. Provided written information for blue folder at discharge. Pt indicated understanding an appreciation.
[2020-09-30] MEDS: TAMSULOSIN 0.4 MG CAPSULE PO (11:03)
--- NOTE | 2020-09-30 12:17 | PC.NURSE ---
Day shift note: Patient discharged home as ordered, cleared by OT/PT/SP. Ambulating in room independently. Soft collar in place. Discussed importance of F/U with Dr. Welch on scheduled appt, s/sx of infection, mobility restrictions, dressing care, and new medications. Home via private vehicle.
== END 2020-09-30 11:30 | disposition home or self-care (01) ==
LOC: OR 09:21 → AC 09:21
PROVIDERS: PCP Internal Medicine; Referring Provider Orthopaedic Surgery; Visit Provider Orthopaedic Surgery
PROC: (CPT 22551; principal; 2020-09-29 10:45)
DX: M48.02 Spinal stenosis, cervical region (principal); M47.12 Other spondylosis with myelopathy, cervical region; G47.33 Obstructive sleep apnea (adult) (pediatric); M25.78 Osteophyte, vertebrae
CPT/HCPCS: 22551; 22552 ×2; 22853 ×3; 20939; 72040; 76000; 97161; 97165; C1776; A9270; J0330; J0690; J1100; J1170; J2405; J2704; J3010

== ENCOUNTER → 2021-01-18 08:06 | Outpatient (CLI) | payer MEDICARE, OTHER, SELFPAY ==
[2020-09-29 14:42] VITALS: BMI 22.6
--- NOTE | 2021-01-18 | DI.MRI.S_ITS ---
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 Optional contrast may be given, followed by axial 2-D FLASH with fat saturation acquired over the lesion of concern. COMPARISON: [facility], CT, CT CHEST WO CON, 07/07/2020, 9:16. [facility], CR, XR CERVICAL SPINE 2 OR 3 VIEWS, 12/30/2020, 10:36. [facility], CR, XR CHEST 2V, 01/18/2021, 9:27. [facility], MR, MR CHEST WO/W CON, 07/07/2020, 9:26. FINDINGS: Image quality: Excellent. Region of interest: Left posterior paramedian chest wall, centered on the area of postsurgical cutaneous distortion and subcutaneous fat excision, evaluated by multiple pulse sequences and pre-and post-contrast fat suppressed T1 imaging. In the soft tissues extending to the superficial muscular fascial layer there is postsurgical change that is stable over time in this area of concern. No mass has developed, no abnormal fluid collection is seen. There is slight enhancement of the thin boundary of scar tissue centrally located within the area of excision. Bones: Nearby osseous structures demonstrate normal overall marrow signal. IMPRESSION: No mass lesion found, no evidence of recurrent neoplasm. As discussed there is mild distortion of the soft tissues and mild enhancement of the thin layer of scar tissue at the site of prior excision, stable over time from the comparison postoperative study 07/07/20. Continued clinical follow-up and MR survey scanning through this area is anticipated. Dictated by: Anatoliy Bradford M.D. on 01/18/2021 at 11:06 Approved by: Anatoliy Bradford M.D. on 01/18/2021 at 11:17
== END ==
PROVIDERS: PCP Family Medicine; Referring Provider Nurse Practitioner; Visit Provider Nurse Practitioner
DX: C49.3 Malignant neoplasm of connective and soft tissue of thorax (principal)
CPT/HCPCS: 71046; 71552

== ENCOUNTER → 2021-01-18 08:08 | Outpatient (CLI) | payer MEDICARE, OTHER, SELFPAY ==
[2020-09-29 14:42] VITALS: BMI 22.6
[2021-01-18 10:09] LABS: Add Manual Diff / Slide Review NO; Basophils Absolute Auto 0 /uL (0-100); Basophils Percent Auto 0.8 % (0-2); Eosinophils Absolute Auto 100 /uL (0-450); Eosinophils Percent Auto 1.4 % (2-4); Hematocrit 41.6 % (41-53); Hemoglobin 14.1 g/dL (13.5-17.5); Lymphocytes Absolute Auto 1300 /uL (1100-4500); Lymphocytes Percent Auto 25.2 % (25-40); Mean Corpuscular HGB Conc 33.8 % (30-36); Mean Corpuscular Hemoglobin 31.2 PG (26-34); Mean Corpuscular Volume 92.3 fL (80-100); Monocytes Absolute Auto 400 /uL (0-900); Monocytes Percent Auto 8.4 % (3-14); Neutrophils Absolute Auto 3300 /uL (1500-7000); Neutrophils Percent Auto 64.2 % (50-75); Platelet Count 181 X10^3/uL (150-400); Red Blood Cell Count 4.51 X10^6/uL (4.5-5.9); Red Cell Distribution Width 13.1 % (11.6-14.8); White Blood Cell Count 5.2 X10^3/uL (4.5-11.0)
[2021-01-18 10:44] LABS: Alanine Aminotransferase 19 IU/L (<50); Albumin 4.3 g/dL (3.5-5.0); Albumin Globulin Ratio 1.8 (1.0-2.8); Alkaline Phosphatase 64 U/L (38-126); Aspartate Aminotransferase 27 IU/L (17-59); BUN Creatinine Ratio 23.4 (6-22); Bilirubin Total 0.6 mg/dL (0.2-1.3); Blood Urea Nitrogen 22 mg/dL (9-20); Calcium 9.4 mg/dL (8.4-10.2); Carbon Dioxide 27 mmol/L (22-32); Chloride 106 mmol/L (98-107); Cholesterol 236 mg/dL (140-199); Estimated Glomerular Filt Rate > 60.0 mL/min (>60); Globulin 2.4 g/dL (1.7-4.1); Glucose 96 mg/dL (80-110); HDL Cholesterol 49 mg/dL (40-60); HEMOLYSIS < 15 (0-50); LDL Cholesterol Calculated 166 mg/dL (<100); Potassium 4.5 mmol/L (3.4-5.1); Sodium 139 mmol/L (137-145); Total Protein 6.7 g/dL (6.3-8.2); Triglycerides 103 mg/dL (35-150)
== END ==
PROVIDERS: PCP Family Medicine; Referring Provider Family Medicine; Visit Provider Family Medicine
DX: E55.9 Vitamin D deficiency, unspecified (principal); E78.2 Mixed hyperlipidemia; R03.0 Elevated blood-pressure reading, without diagnosis of hypertension; Z13.29 Encounter for screening for other suspected endocrine disorder
CPT/HCPCS: 36415; 80053; 80061; 82306; 84443; 85025

== ENCOUNTER → 2021-01-18 08:28 | Outpatient (CLI) | payer MEDICARE, OTHER, SELFPAY ==
[2020-09-29 14:42] VITALS: BMI 22.6
--- NOTE | 2021-01-18 08:30 | DI.RAD.S_ITS ---
PROCEDURE: XR CHEST 2V INDICATIONS: SARCOMA SURVEY TECHNIQUE: 2 views of the chest were acquired. COMPARISON: [facility], XR CXR 1 VIEW, 07/23/2005, 7:07. [facility], CR, XR CHEST 2V, 03/01/2020, 12:15. [facility], CR, CHEST 1 VIEW, 10/19/2007, 6:34. FINDINGS: Surgical changes and devices: None. Lungs and pleura: Lungs are clear. No pleural effusions or pneumothorax. Mediastinum: Mediastinal contours are normal. Heart size is normal. Bones and chest wall: No suspicious bony abnormalities. Soft tissues appear unremarkable. Mild asymmetric calcification at the 1st right side costosternal articulation is again noted. IMPRESSION: Normal for age, no sign of metastatic disease related to prior sarcoma. Note is again made of asymmetric right greater than left 1st costosternal junction calcification, present on prior chest plain films. Dictated by: Anatoliy Bradford M.D. on 01/18/2021 at 11:17 Approved by: Anatoliy Bradford M.D. on 01/18/2021 at 11:19
== END ==
PROVIDERS: PCP Family Medicine; Referring Provider Nurse Practitioner; Visit Provider Nurse Practitioner
DX: C49.3 Malignant neoplasm of connective and soft tissue of thorax (principal)
CPT/HCPCS: 71046

== ENCOUNTER → 2021-09-04 09:34 | Outpatient (CLI) | payer MEDICARE, OTHER, SELFPAY ==
[2020-09-29 14:42] VITALS: BMI 22.6
[2021-09-04 11:21] LABS: Alanine Aminotransferase 20 IU/L (<50); Albumin 4.2 g/dL (3.5-5.0); Albumin Globulin Ratio 1.6 (1.0-2.8); Alkaline Phosphatase 63 U/L (38-126); Aspartate Aminotransferase 26 IU/L (17-59); BUN Creatinine Ratio 19.8 (6-22); Bilirubin Total 0.5 mg/dL (0.2-1.3); Blood Urea Nitrogen 18 mg/dL (9-20); Calcium 9.6 mg/dL (8.4-10.2); Carbon Dioxide 29 mmol/L (22-32); Chloride 102 mmol/L (98-107); Cholesterol 215 mg/dL (140-199); Estimated Glomerular Filt Rate > 60.0 mL/min (>60); Globulin 2.6 g/dL (1.7-4.1); Glucose 97 mg/dL (80-110); HDL Cholesterol 42 mg/dL (40-60); HEMOLYSIS < 15 (0-50); LDL Cholesterol Calculated 153 mg/dL (<100); Sodium 139 mmol/L (137-145); Total Protein 6.8 g/dL (6.3-8.2); Triglycerides 100 mg/dL (35-150)
== END ==
PROVIDERS: PCP Family Medicine; Referring Provider Family Medicine; Visit Provider Family Medicine
DX: E78.5 Hyperlipidemia, unspecified (principal); R03.0 Elevated blood-pressure reading, without diagnosis of hypertension
CPT/HCPCS: 36415; 80053; 80061

== ENCOUNTER → 2022-10-12 10:45 | Outpatient (CLI) | payer MEDICARE, OTHER, SELFPAY ==
[2020-09-29 14:42] VITALS: BMI 22.6
--- NOTE | 2022-10-12 | DI.MRI.S_ITS ---
PROCEDURE: MR CHEST WO/W CON INDICATIONS: UNDIFFERENTIATED PLEOMORPHIC SARCOMA TECHNIQUE: Noncontrast coronal T1 spin echo, T2 fast spin echo, and STIR, sagittal T1 spin echo and STIR, axial T1 spin echo and STIR. After the administration of intravenous contrast, axial/sagittal/coronal T1 spin echo with fat saturation through the left back. COMPARISON: [facility], MR, MR CHEST WO/W CON, 07/07/2020, 9:26. [facility], MR, MR CHEST WO/W CON, 01/18/2021, 8:31. FINDINGS: Image quality: Excellent. Bones: The visualized bone marrow demonstrates normal signal on all sequences. The overlying cortex appears intact. No abnormal intraosseous enhancement. Multilevel degenerative changes are seen in the spine. Soft tissues: Postsurgical changes are again seen in the soft tissues of the left back. No recurrent soft tissue mass or abnormal enhancement is seen at the surgical site. The scanned muscles demonstrate normal overall bulk and internal signal. Multiple bilateral simple renal cysts are seen, the largest of which measures up to 8.4 cm at the superior pole of the right kidney. IMPRESSION: Stable postsurgical changes in the subcutaneous tissues at the left back. No recurrent soft tissue mass or abnormal enhancement is seen. Approved by: Butch Horta M.D. on 10/12/2022 at 15:06
--- NOTE | 2022-10-12 | DI.RAD.S_ITS ---
PROCEDURE: XR CHEST 2V INDICATIONS: UNDIFFERENTIATED PLEOMORPHIC SARCOMA TECHNIQUE: 2 views of the chest were acquired. COMPARISON: [facility], CR, XR CHEST 2V, 01/18/2021, 9:27. FINDINGS: Surgical changes and devices: None. Lungs and pleura: Lungs are clear. No pleural effusions or pneumothorax. Mediastinum: Mildly tortuous thoracic aorta is seen. Heart size is normal. Bones and chest wall: No suspicious bony abnormalities. Soft tissues appear unremarkable. IMPRESSION: No acute cardiopulmonary pathology. Dictated by: Moses Gallego M.D. on 10/12/2022 at 12:57 Approved by: Moses Gallego M.D. on 10/12/2022 at 12:57
== END ==
PROVIDERS: PCP Family Medicine; Referring Provider Orthopaedic Surgery; Visit Provider Orthopaedic Surgery
DX: C49.9 Malignant neoplasm of connective and soft tissue, unspecified (principal); N28.1 Cyst of kidney, acquired
CPT/HCPCS: 71046; 71552; A9579

== ENCOUNTER → 2023-11-07 12:47 | Outpatient (CLI) | payer MEDICARE, OTHER, SELFPAY ==
[2020-09-29 14:42] VITALS: BMI 22.6
--- NOTE | 2023-11-07 12:50 | DI.CT.S_ITS ---
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 7 mm thick axial MIP and 5 mm coronal and sagittal reformats were then acquired. For radiation dose reduction, the following was used: automated exposure control, adjustment of mA and/or kV according to patient size. COMPARISON: [facility], CT, CT CHEST WO CON, 07/07/2020, 9:16. FINDINGS: Image quality: Diagnostic. Lower Neck: No enlarged lymph nodes. Thyroid: No thyroid nodules which require sonographic follow up, per consensus guidelines. Axillae: No enlarged lymph nodes. Chest Wall: Unremarkable. Bones: Unremarkable. Lungs and Pleura: Emphysematous lung changes. No pneumothorax or pleural effusion. Solid 3 mm nodule again identified in the right upper lobe (99/3) appearing unchanged. Heart: Heart size is normal. No pericardial effusion. Thoracic Vessels: The aorta and pulmonary arteries demonstrate normal size. Mediastinum and Nicci: No enlarged lymph nodes. Esophagus: No wall thickening. No significant hiatal hernia Upper Abdomen: Incompletely visualized renal cystic lesions, presumably simple cysts. IMPRESSION: 1. The 3 mm nodule involving the left upper lobe appears unchanged since 2019. No further surveillance of this particular nodule is indicated. 2. Emphysematous lung changes Fleischner Society criteria for SOLID lung nodule followup. Nodule size (mm)Low-risk patientHigh-risk patient<6 (single or multiple)No routine followup.Optional CT at 12 months. 6-8 (single or multiple)CT at 6-12 months, then optional CT at 18-24 mo.CT at 6-12 months, then CT at 18-24 months. >8 (single)CT at 3 months, PET-CT, or biopsy. Same as for low-risk pts. >8 (multiple)CT at 3-6 months, then optional CT at 18-24 mo.CT at 3-6 months, then CT at 18-24 months. Fleischner Society criteria for SUB-SOLID lung nodule followup. Solitary pure ground-glass nodules<6 mm (ground glass or part solid)No followup needed. 6 mm or larger (ground glass)CT at 6-12 months to confirm persistence, then CT every 2 years until 5 years.6 mm or larger (part solid)CT at 3-6 months to confirm persistence, then annual CT until 5 years if unchanged and solid component remains <6 mm. Multiple sub-solid nodules<6 mmCT at 3-6 months, then CT consider at 2 & 4 years for high risk patients. [address] at 3-6 months. Subsequent management based on most suspicious lesions. Recommendations do not apply to lung cancer screening, patients with immunosuppression, or patients with known primary cancer. Dictated by: Gulshan Mendez M.D. on 11/07/2023 at 15:44 Approved by: Gulshan Mendez M.D. on 11/07/2023 at 15:53
--- NOTE | 2023-11-07 12:52 | DI.MRI.S_ITS ---
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 After the administration of contrast, axial/sagittal/coronal T1 spin echo with fat saturation through the left back. COMPARISON: [facility], MR, MR CHEST WO/W CON, 10/12/2022, 11:07. FINDINGS: Image quality: Excellent. Bones: The included osseous structures shows normal marrow signal. No fracture or dislocation. No suspicious intraosseous lesion or abnormal intraosseous enhancement. Degenerative disc disease in visualized lower thoracic and lumbar spine is seen. Soft tissues: Again noted are postsurgical changes in soft tissue of left posterior lateral lower back at the level of mid to lower pole left kidney. There is no enhancing soft tissue mass or drainable fluid collection seen on the current study. Underlying left paraspinous muscles and left lower back muscles show no signal abnormality. No intramuscular mass or fluid collection. Bilateral renal cysts are again seen not significantly changed in size and appearance from prior study. No hydronephrosis. Limited evaluation of abdominal aorta and IVC shows normal size and enhancement. No retroperitoneal lymphadenopathy. IMPRESSION: Stable postsurgical changes in posterior lateral left back soft tissue without evidence of recurrence. No area of abnormal enhancement. No marrow signal abnormalities or abnormal intraosseous enhancement. Dictated by: Moses Gallego M.D. on 11/07/2023 at 15:37 Approved by: Moses Gallego M.D. on 11/07/2023 at 15:41
== END ==
PROVIDERS: PCP Family Medicine; Referring Provider Nurse Practitioner; Visit Provider Nurse Practitioner
DX: C49.9 Malignant neoplasm of connective and soft tissue, unspecified (principal); R91.1 Solitary pulmonary nodule; N28.1 Cyst of kidney, acquired
CPT/HCPCS: 71250; 71552; A9579

== ENCOUNTER → 2024-11-22 10:42 | Outpatient (CLI) | payer MEDICARE, OTHER, SELFPAY ==
[2020-09-29 14:42] VITALS: BMI 22.6
--- NOTE | 2024-11-22 | DI.RAD.S_ITS ---
PROCEDURE: XR CHEST 2V INDICATIONS: SURVEIL S/P RESECT HIGH GRD PLEOMORPHIC SARCOMA TECHNIQUE: 2 views of the chest were acquired. COMPARISON: [facility], CR, XR CHEST 2V, 10/12/2022, 10:52. [facility], CR, XR CHEST 2V, 01/18/2021, 9:27. FINDINGS: Surgical changes and devices: None. Lungs and pleura: Lungs are clear. No pleural effusions or pneumothorax. Mediastinum: Mediastinal contours are normal. Heart size is normal. Bones and chest wall: No suspicious bony abnormalities. Soft tissues appear unremarkable. IMPRESSION: No acute cardiopulmonary abnormality is seen. Dictated by: Luis Manuel Figueroa M.D. on 11/22/2024 at 16:45 Approved by: Luis Manuel Figueroa M.D. on 11/22/2024 at 16:46
--- NOTE | 2024-11-22 | DI.MRI.S_ITS ---
PROCEDURE: MR CHEST WO/W CON INDICATIONS: SURVEIL S/P RESECT HIGH GRD PLEOMORPHIC SARCOMA TECHNIQUE: Noncontrast coronal T1 spin echo and STIR, sagittal T1 spin echo with fat saturation and STIR, axial T1 spin echo and T2 fast spin echo with fat saturation. After the administration of contrast, axial/sagittal/coronal T1 spin echo with fat saturation through the left back. COMPARISON: [facility], MR, MR CHEST WO/W CON, 11/07/2023, 13:52. FINDINGS: Image quality: Excellent. Bones: Fiducial marker is placed over dorsal aspect of left lateral back at the level of spleen. There is no marrow edema. No fracture or dislocation. No suspicious intraosseous lesion. Mild degenerative disc disease in visualized thoracic spine is seen. No area of abnormal intraosseous enhancement is seen. Soft tissues: Postsurgical changes are again seen in left posterior lateral lower back soft tissue at the level of mid to lower pole left kidney unchanged from previous study. No enhancing soft tissue mass or drainable fluid collection. No intramuscular mass or abnormal intramuscular enhancement. Previously described Simple appearing bilateral renal cysts are again seen unchanged from prior study. No hydronephrosis. No gross retroperitoneal lymphadenopathy. Visualized portion of IVC and abdominal aorta is normal in size. IMPRESSION: 1. Stable postsurgical changes in posterior lateral left a back soft tissue unchanged from prior studies. No evidence of local recurrence. 2. No abnormal intramuscular enhancement or drainable fluid collection. 3. No suspicious intraosseous lesion. No abnormal intraosseous enhancement. Dictated by: Moses Gallego M.D. on 11/23/2024 at 14:57 Approved by: Moses Gallego M.D. on 11/23/2024 at 15:02
== END ==
PROVIDERS: PCP Family Medicine; Referring Provider Nurse Practitioner; Visit Provider Nurse Practitioner
DX: C49.9 Malignant neoplasm of connective and soft tissue, unspecified (principal); Z98.890 Other specified postprocedural states
CPT/HCPCS: 71046; 71552; A9579

== ENCOUNTER → 2025-07-06 15:12 | Outpatient (CLI) | payer MEDICARE, OTHER, SELFPAY ==
[2020-09-29 14:42] VITALS: BMI 22.6
--- NOTE | 2025-07-06 15:14 | DI.MRI.S_ITS ---
PROCEDURE: MR LUMBAR SPINE WO CON INDICATIONS: LBP, Rt-sided radiculopathy w/ right hip flexor px TECHNIQUE: Noncontrast sagittal T1 spin echo and T2 fast echo, sagittal STIR, and T2 fast spin echo through the lumbar spine. In cases with scoliosis, additional coronal T2 fast spin echo may be performed. COMPARISON: None. FINDINGS: Image quality: Excellent Moderate levoscoliosis of the lumbar spine, centered at L3-4. Mild retrolisthesis of L1 on L2, L2 on L3, L3 on L4. Grade 1 anterolisthesis L4 on L5, and L5 on S1. Vertebral body height of lumbar spine are well maintained. Multilevel mild fibrovascular endplate change, most pronounced at T12-L1, and L2-3. Multilevel disc bulge and disc desiccation. Conus terminates at the level of T12-L1, and is unremarkable. Right neural foraminal stenosis: Mild at T10-T11, T 11 to T12, T12-L1, L1-L2, L2-L3, moderate at L3-L4, severe at L4-L5. Left neural foraminal stenosis: Mild at L1-2, moderate at L2-3, L3-4, mild at L4-5. Axial images: T10-T11: Severe bilateral facet arthropathy. Disc bulge. Mild central canal stenosis. T11-T12: Severe bilateral facet arthropathy. Disc bulge. Mild central canal stenosis. T12-L1: Mild bilateral facet arthropathy. Disc bulge. Mild central canal stenosis L1-2:: Moderate bilateral facet arthropathy. Disc bulge. Mild central canal stenosis. L2-3: Disc bulge. Moderate bilateral facet arthropathy. Epidural lipomatosis. Moderate central canal stenosis. L3-4: Severe bilateral facet arthropathy. Disc bulge. Mild central canal stenosis. L4-5: Posterior disc uncovering. Severe bilateral facet arthropathy. Moderate to severe central canal stenosis. L5-S1: Posterior disc uncovering. Severe bilateral facet arthropathy. No central canal stenosis. Visualized sacrum is intact. The multiple bilateral renal cyst. Mild splenic varices, partially visualized. IMPRESSION: 1. Multilevel degenerative changes, most pronounced at L4-5, where there is moderate to severe central canal stenosis and severe right and mild left neural foraminal stenosis. Dictated by: Ebony Matta M.D. on 07/06/2025 at 17:10 Approved by: Ebony Matta M.D. on 07/06/2025 at 17:21
== END ==
PROVIDERS: PCP Family Medicine; Referring Provider Family Medicine; Visit Provider Family Medicine
DX: M47.26 Other spondylosis with radiculopathy, lumbar region (principal); M47.27 Other spondylosis with radiculopathy, lumbosacral region; M54.41 Lumbago with sciatica, right side; M25.551 Pain in right hip; G89.29 Other chronic pain
CPT/HCPCS: 72148

== ENCOUNTER → 2025-09-06 09:18 | Outpatient (CLI) | payer MEDICARE, OTHER, SELFPAY ==
[2020-09-29 14:42] VITALS: BMI 22.6
[2025-09-06 10:11] LABS: Add Manual Diff / Slide Review NO; Hematocrit 38.3 % (41-53); Hemoglobin 12.8 g/dL (13.5-17.5); Lymphocytes Absolute Auto 1600 /uL (1100-4500); Mean Corpuscular HGB Conc 33.4 % (30-36); Mean Corpuscular Hemoglobin 30.4 PG (26-34); Mean Corpuscular Volume 90.9 fL (80-100); Platelet Count 213 X10^3/uL (150-400)
[2025-09-06 10:55] LABS: Blood Urea Nitrogen 24 mg/dL (9-20); Calcium 8.8 mg/dL (8.4-10.2); Carbon Dioxide 27 mmol/L (22-32); Chloride 105 mmol/L (98-107); Estimated Glomerular Filt Rate > 60 mL/min (>60); Glucose 98 mg/dL (70-99); HEMOLYSIS < 15 (0-50); Potassium 4.6 mmol/L (3.4-5.1); Sodium 140 mmol/L (137-145)
== END ==
PROVIDERS: PCP Family Medicine; Referring Provider Family Medicine; Visit Provider Orthopaedic Surgery
DX: M48.062 Spinal stenosis, lumbar region with neurogenic claudication (principal); Z79.1 Long term (current) use of non-steroidal anti-inflammatories (NSAID)
CPT/HCPCS: 36415; 80048; 85025